=== PATIENT | female | born 1970 | race Hispanic/Latino ===

== ENCOUNTER 2017-12-01 18:33 | Emergency (ER) | payer BC, OTHER ==
[~2017-12-01 18:33] MED LIST: ASPI-1197 PO; ATOR10 PO; AZIT500T4 PO; LISI10TA7 PO; MELO-108 PO; METF500T6 PO; METO-408 PO; PRED20TA3 PO
[2017-12-01 18:55] LABS: APPEARANCE,URINE Clear (CLEAR); BILIRUBIN,URINE Negative (NEGATIVE); COLOR,URINE Yellow (YELLOW); GLUCOSE, URINE (UA) >=1000 mg/dL (NEGATIVE); KETONES,URINE Negative (NEGATIVE); LEUKOCYTE ESTERASE ,URINE Trace (NEGATIVE); NITRATE,URINE Negative (NEGATIVE); OCCULT BLOOD,URINE Small (NEGATIVE); PH,URINE 6.5 (5.0-8.0); PROTEIN,URINE POS 1+ (NEGATIVE); UROBILINOGEN,URINE 0.2 mg/dL (0.2-1.0)
[2017-12-01 19:15] LABS: BACTERIA,URINE Rare /HPF (None Seen); SQUAMOUS EPITHELIAL CELL,UR 0-2 /LPF (0-2)
[2017-12-01 19:37] LABS: BASOPHILS % (AUTO) 0.8 % (0.0-5.0); EOSINOPHILS % (AUTO) 1.2 % (0.0-8.0); HEMATOCRIT 38.3 % (36-48); MEAN CORPUSCULAR HGB CONC 33.3 g/dL (32.0-36.0); MONOCYTES % (AUTO) 4.7 % (3.0-13.0); NEUTROPHILS % (AUTO) 61.3 % (40.0-77.0); PLATELET COUNT (AUTO) 343 K/uL (130-400); RED BLOOD CELL COUNT(AUTO) 4.56 MIL/uL (4.00-5.50); RED CELL DISTRIBUTION WIDTH 13.7 % (11.0-15.5); WHITE BLOOD COUNT (AUTO) 12.1 K/uL (4.8-10.8)
[2017-12-01] MEDS ORDERED: LISINOPRIL 5 MG TABLET ONE (19:47)
[2017-12-01] MEDS ORDERED: ONDANSETRON HCL 4 MG/2 ML VIAL ONE (19:47)
[2017-12-01] MEDS ORDERED: SODIUM CHLORIDE 0.9% 500ML 500 ML IV ONE (19:48)
[2017-12-01] MEDS ORDERED: METOPROLOL TARTRATE 50 MG TAB ONE (19:48)
[2017-12-01] MEDS ORDERED: MORPHINE SULFATE 4 MG/1ML SYG ONE (19:48)
[2017-12-01 19:49] LABS: CREATININE 0.7 mg/dL (0.5-1.5); POTASSIUM 4.1 mmol/L (3.5-5.1)
[2017-12-01 19:54] LABS: ALBUMIN 3.2 g/dL (3.5-5.0); BILIRUBIN,TOTAL 0.2 mg/dL (0.2-1.0)
[2017-12-01 19:58] LABS: CREATINE KINASE MB < 0.5 ng/mL (0.5-3.6); CREATINE KINASE, TOTAL 33 U/L (21-232); MYOGLOBIN 17 ng/mL (10-92); TROPONIN I < 0.04 ng/mL (0.00-0.06)
[2017-12-01] MEDS ORDERED: INSULIN HUMULIN R 100 UNIT/ML 3ML ONE (20:36)
== END 2017-12-01 22:31 | disposition home or self-care (01) ==
LOC: EDH 18:33
DX: Z91.11 Patient's noncompliance with dietary regimen (principal); Z91.19 Patient's noncompliance with other medical treatment and regimen; R10.9 Unspecified abdominal pain; I10 Essential (primary) hypertension; E11.9 Type 2 diabetes mellitus without complications; I25.10 Atherosclerotic heart disease of native coronary artery without angina pectoris; Z88.0 Allergy status to penicillin
CPT/HCPCS: 36415; 74176; 80053; 81001; 82550; 82553; 82948; 83874; 84484; 85025; 93005; 96361; 96374; 96375; 99285; J1815; J2270; J2405; J7040

== ENCOUNTER 2019-01-02 08:16 | Emergency (ER) | payer SELFPAY ==
[~2019-01-02 08:16] MED LIST changes: +METF-444 PO; -METF500T6 PO
[2019-01-02 08:51] LABS: BILIRUBIN,URINE Negative (NEGATIVE); COLOR,URINE Yellow (YELLOW); GLUCOSE, URINE (UA) Negative (NEGATIVE); KETONES,URINE Negative (NEGATIVE); LEUKOCYTE ESTERASE ,URINE Trace (NEGATIVE); NITRATE,URINE Negative (NEGATIVE); OCCULT BLOOD,URINE Large (NEGATIVE); PH,URINE 5.5 (5.0-8.0); PROTEIN,URINE Trace (NEGATIVE)
[2019-01-02 08:52] LABS: APPEARANCE,URINE CLOUDY (CLEAR)
[2019-01-02 09:00] LABS: BACTERIA,URINE Few /HPF (None Seen); MUCUS,URINE Few LPF (None Seen); RBC,URINE 26-50 /HPF (0-1); SQUAMOUS EPITHELIAL CELL,UR Few /HPF (0-2)
[2019-01-02] MEDS ORDERED: ONDANSETRON ODT 4 MG TAB ONE (09:06)
[2019-01-02] MEDS ORDERED: ASPIRIN 325 MG TABLET ONE (09:06)
[2019-01-02] MEDS ORDERED: DIAZEPAM 5 MG TABLET ONE (09:07)
[2019-01-02 09:42] LABS: BASOPHILS % (AUTO) 0.7 % (0.0-5.0); EOSINOPHILS % (AUTO) 0.9 % (0.0-8.0); HEMATOCRIT 37.8 % (36-48); LYMPHOCYTES % (AUTO) 21.4 % (21.0-51.0); MEAN CORPUSCULAR HEMOGLOBIN 26.7 pg (27.0-33.0); MEAN CORPUSCULAR HGB CONC 32.2 g/dL (32.0-36.0); MEAN CORPUSCULAR VOLUME 82.8 fL (79-99); PLATELET COUNT (AUTO) 381 K/uL (130-400); RED BLOOD CELL COUNT(AUTO) 4.57 MIL/uL (4.00-5.50); RED CELL DISTRIBUTION WIDTH 16.1 % (11.0-15.5); WHITE BLOOD COUNT (AUTO) 10.6 K/uL (4.8-10.8)
[2019-01-02 09:53] LABS: ALANINE AMINOTRANSFERASE 19 U/L (12-78); ALBUMIN 3.2 g/dL (3.5-5.0); ASPARTATE AMINOTRANSFERASE 24 U/L (10-37); BILIRUBIN,DIRECT < 0.1 mg/dL (0.0-0.3); BILIRUBIN,TOTAL 0.3 mg/dL (0.2-1.0); CARBON DIOXIDE 25 mmol/L (21-32); CHLORIDE 102 mmol/L (101-111); CREATINE KINASE, TOTAL 51 U/L (21-232); CREATININE 0.6 mg/dL (0.5-1.5); GLOMERULAR FILTR. RATE CALC 112 mL/min (>60); GLUCOSE,RANDOM 159 mg/dL (70-105); LIPASE 105 U/L (114-286); POTASSIUM 4.5 mmol/L (3.5-5.1); SODIUM SERUM 138 mmol/L (136-145); TOTAL PROTEIN, SERUM 7.9 g/dL (6.0-8.3); UREA NITROGEN, BLOOD 18 mg/dL (7-18)
[2019-01-02] MEDS ORDERED: KETOROLAC TROMETHAMINE 30MG/ML ONE (11:33)
== END 2019-01-02 11:56 | disposition home or self-care (01) ==
LOC: EDH 08:16
DX: M54.5 Low back pain (principal); R31.9 Hematuria, unspecified; I25.10 Atherosclerotic heart disease of native coronary artery without angina pectoris; I10 Essential (primary) hypertension; E11.9 Type 2 diabetes mellitus without complications; Z88.0 Allergy status to penicillin; Z98.890 Other specified postprocedural states
CPT/HCPCS: 36415; 71045; 74176; 80048; 80076; 81001; 82550; 83690; 83880; 84484; 85025; 93005; 96374; 99284; J1885

== ENCOUNTER 2020-01-06 05:44 | Day surgery (SDC) | payer MEDICAID ==
[2020-01-04 08:47] LABS: BASOPHILS % (AUTO) 0.5 % (0.0-5.0); EOSINOPHILS % (AUTO) 1.1 % (0.0-8.0); HEMATOCRIT 37.2 % (36-48); LYMPHOCYTES % (AUTO) 25.8 % (21.0-51.0); MEAN CORPUSCULAR HEMOGLOBIN 26.3 pg (27.0-33.0); MEAN CORPUSCULAR HGB CONC 30.9 g/dL (32.0-36.0); MEAN CORPUSCULAR VOLUME 84.9 fL (79-99); MONOCYTES % (AUTO) 4.6 % (3.0-13.0); NEUTROPHILS % (AUTO) 67.7 % (40.0-77.0); PLATELET COUNT (AUTO) 352 K/uL (130-400); RED BLOOD CELL COUNT(AUTO) 4.38 MIL/uL (4.00-5.50); WHITE BLOOD COUNT (AUTO) 10.4 K/uL (4.8-10.8)
[2020-01-04 08:49] LABS: APPEARANCE,URINE Clear (CLEAR); BILIRUBIN,URINE Negative (NEGATIVE); COLOR,URINE Yellow (YELLOW); GLUCOSE, URINE (UA) Negative (NEGATIVE); KETONES,URINE Negative (NEGATIVE); LEUKOCYTE ESTERASE ,URINE Negative (NEGATIVE); NITRATE,URINE Negative (NEGATIVE); OCCULT BLOOD,URINE Negative (NEGATIVE); PROTEIN,URINE Negative (NEGATIVE); UROBILINOGEN,URINE 0.2 mg/dL (0.2-1.0)
[2020-01-04 08:50] LABS: CREATININE 0.7 mg/dL (0.5-1.5); POTASSIUM 4.3 mmol/L (3.5-5.1)
[2020-01-04 08:58] LABS: INR 0.96 (0.85-1.15); PARTIAL THROMBOPLASTIN TIME 27.7 SEC (26.3-35.5); PROTHROMBIN TIME 10.1 SEC (9.6-11.6)
[2020-01-04 09:44] VITALS: BP 141/68
[~2020-01-06] VITALS: Ht 167.6 cm; Wt 161.4 kg
[2020-01-06] VITALS (10 sets, daily range): BP systolic 120–152; BP diastolic 53–75
[~2020-01-06 05:44] MED LIST changes: -AZIT500T4 PO; +EMPA25TA PO; +ESCI20TA36 PO; +GLIM4TAB36 PO; +LORA10TA7 PO; -MELO-108 PO; +PANT40TA25 PO; -PRED20TA3 PO; +RIVA20TA PO
[2020-01-06] MEDS ORDERED: SODIUM CHLORIDE 0.9% 1000ML 1,000 ML IV ONE (06:15)
--- NOTE | 2020-01-06 06:15 | NUR ---
PRE OP PT ARRIVED AMBULATORY WITH FAMILY AT SIDE IN NO DISTRESS FOR LHC. PT MADE COMFORTABLE IN BED, CONNECTED TO [employer], CALL LIGHT WITH IN REACH AND BED IN LOWEST POSITION. PT INSTRUCTED TO CALL FOR ASSISTANCE AND VOICED UNDERSTANDING
[2020-01-06] MEDS ORDERED: SODIUM BICARB 50MEQ 50ML VIAL ONE (07:43)
[2020-01-06] MEDS ORDERED: BIVALIRUDIN 250 MG/VIAL IV ONE (07:43)
[2020-01-06] MEDS ORDERED: LIDOCAINE HCL 2% 20ML ONE (07:44)
[2020-01-06] MEDS ORDERED: IOHEXOL 350 MG/ML 100ML INFUS..BTL IV ONE (07:44)
[2020-01-06] MEDS ORDERED: HEPARIN SODIUM 1000UNIT/ML 10ML VIAL ONE ×2 (07:44→08:43)
[2020-01-06] MEDS ORDERED: FENTANYL CITRATE PF 50 MCG/1 ML 2ML VIAL ONE (07:44)
[2020-01-06] MEDS ORDERED: IOHEXOL-350 50ML VIAL IV ONE (07:44)
[2020-01-06] MEDS ORDERED: MIDAZOLAM HCL 1 MG/ML 2ML VIAL ONE (07:44)
[2020-01-06] MEDS ORDERED: NICARDIPINE HCL 25 MG/10 ML ML IV ONE (07:49)
[2020-01-06] MEDS ORDERED: SODIUM CHLORIDE 0.9% 1000ML 1,000 ML IV SCH (08:00)
[2020-01-06] MEDS ORDERED: METOPROLOL TARTRATE 1 MG/ML 5ML VIAL IV ONE (08:34)
[2020-01-06] MEDS ORDERED: PRASUGREL HCL 10 MG TABLET ONE (09:25)
[2020-01-06] MEDS ORDERED: ASPIRIN 325MG EC TAB 325 MG TABLET.DR PO ONE (09:25)
--- NOTE | 2020-01-06 10:20 | NUR ---
ROUNDS DR NEWTON TALKING TO PT AND FAMILY. PLAN OF CARE DISCUSSED WITH PT. PT WILL NEED TO BE ON BLOOD THINNERS FOR A WHILE SO GASTRIC SURGERY WILL BE DELAYED WITH DR BOOKER. PT ALSO INSTRUCTED TO FOLLOW UP WITH DR NEWTON. PT VOICED UNDERSTANDING.
--- NOTE | 2020-01-06 13:33 | NUR ---
REPORT CALLED SAYRA MELTON WITH DR NEWTON AND REPORTED C/O HEADACHE RECEIVED NEW ORDER FOR TYLENOL. SEE ORDERS
[2020-01-06] MEDS ORDERED: ACETAMINOPHEN EXTRA STRENGTH 500 MG TABLET ONE (13:42)
[2020-01-06] MEDS ORDERED: ACETAMINOPHEN EXTRA STRENGTH 500 MG TABLET PO SCH (13:45)
--- NOTE | 2020-01-06 14:40 | NUR ---
DISCHARGE PT TAKEN OUT VIA W/C BY IGOR JONES RN. PT FREE FROM BLEEDING AND DISTRESS. PT WAS GIVEN STENT CARD AND DISCHARGE INSTRUCTIONS
== END 2020-01-06 14:40 | disposition home or self-care (01) ==
LOC: DAH 05:44
PROVIDERS: ATTEND Internal Medicine Cardiovascular Disease
DX: R00.2 Palpitations (principal); I25.10 Atherosclerotic heart disease of native coronary artery without angina pectoris; I48.0 Paroxysmal atrial fibrillation; E78.5 Hyperlipidemia, unspecified; E11.9 Type 2 diabetes mellitus without complications; E78.00 Pure hypercholesterolemia, unspecified; G47.30 Sleep apnea, unspecified; I10 Essential (primary) hypertension; Z79.82 Long term (current) use of aspirin; Z79.84 Long term (current) use of oral hypoglycemic drugs; Z79.899 Other long term (current) drug therapy; Z86.73 Personal history of transient ischemic attack (TIA), and cerebral infarction without residual deficits; Z79.01 Long term (current) use of anticoagulants; Z90.49 Acquired absence of other specified parts of digestive tract; Z95.5 Presence of coronary angioplasty implant and graft; Z98.890 Other specified postprocedural states; Z88.0 Allergy status to penicillin
CPT/HCPCS: 36415 ×3; 71045 ×2; 80048; 80053; 81001; 81003; 81025; 82550; 82948 ×2; 83735; 83880; 84484; 85025 ×2; 85347; 85610 ×2; 85730 ×2; 93005 ×2; 93458; 99291; A4215; A4216; A4221; A4222; A4223 ×3; A4606; A4663; C1725 ×3; C1769; C1874; C1887; C1894; C9600; G0378 ×7; J1644 ×4; J1650 ×2; J2250; J3010; J3490 ×6; J7030 ×3; J7060; Q9965; Q9967 ×2; 83874; 99156; 99157; C9602; J0583

== ENCOUNTER 2020-01-06 17:46 | Observation (INO) | payer MEDICAID ==
[~2020-01-06] VITALS: Ht 167.6 cm; Wt 158.8 kg
[2020-01-06] MEDS ORDERED: DILTIAZEM HCL 5 MG/ML 10 ML VIAL IV ONE (18:06)
[2020-01-06] MEDS ORDERED: DILTIAZEM HCL 125 MG/25 ML VIAL IV ONE (18:07)
[2020-01-06] MEDS ORDERED: DEXTROSE 5%-WATER 100 ML IV ONE (18:08)
[2020-01-06] MEDS ORDERED: ASPIRIN 325 MG TABLET ONE (18:14)
[2020-01-06 18:16] LABS: BASOPHILS % (AUTO) 0.3 % (0.0-5.0); HEMATOCRIT 38.2 % (36-48); LYMPHOCYTES % (AUTO) 24.9 % (21.0-51.0); MEAN CORPUSCULAR HEMOGLOBIN 26.3 pg (27.0-33.0); MEAN CORPUSCULAR HGB CONC 31.4 g/dL (32.0-36.0); MEAN CORPUSCULAR VOLUME 83.6 fL (79-99); MONOCYTES % (AUTO) 4.8 % (3.0-13.0); NEUTROPHILS % (AUTO) 68.7 % (40.0-77.0); PLATELET COUNT (AUTO) 390 K/uL (130-400); RED BLOOD CELL COUNT(AUTO) 4.57 MIL/uL (4.00-5.50); RED CELL DISTRIBUTION WIDTH 15.3 % (11.0-15.5); WHITE BLOOD COUNT (AUTO) 11.6 K/uL (4.8-10.8)
[2020-01-06] MEDS ORDERED: ENOXAPARIN SODIUM 60 MG/0.6 ML SQ ONE (18:28)
[2020-01-06] MEDS ORDERED: SODIUM CHLORIDE 0.9% 1000ML 1,000 ML IV ONE ×2 (18:28→19:17)
[2020-01-06] MEDS ORDERED: ENOXAPARIN SODIUM 100 MG/1 ML SQ ONE (18:28)
[2020-01-06 18:29] LABS: POTASSIUM 3.7 mmol/L (3.5-5.1)
[2020-01-06 18:31] LABS: INR 0.96 (0.85-1.15); PARTIAL THROMBOPLASTIN TIME 25.5 SEC (26.3-35.5); PROTHROMBIN TIME 10.1 SEC (9.6-11.6)
[2020-01-06 18:34] LABS: ALBUMIN 3.1 g/dL (3.5-5.0); BILIRUBIN,TOTAL 0.3 mg/dL (0.2-1.0); TOTAL PROTEIN, SERUM 7.8 g/dL (6.0-8.3)
[2020-01-06 18:41] LABS: B-TYPE NATRIURETIC PEPTIDE 113 pg/mL (0-100)
[2020-01-06 19:39] LABS: APPEARANCE,URINE Clear (CLEAR); BILIRUBIN,URINE Negative (NEGATIVE); COLOR,URINE Yellow (YELLOW); GLUCOSE, URINE (UA) >=1000 mg/dL (NEGATIVE); KETONES,URINE Negative (NEGATIVE); LEUKOCYTE ESTERASE ,URINE Negative (NEGATIVE); NITRATE,URINE Negative (NEGATIVE); OCCULT BLOOD,URINE Negative (NEGATIVE); PROTEIN,URINE Negative (NEGATIVE); UROBILINOGEN,URINE 0.2 mg/dL (0.2-1.0)
[2020-01-06] MEDS ORDERED: DILTIAZEM HCL 125 MG/25 ML 125 MG in SODIUM CHLORIDE 0.9% 100 ML IV SCH (19:45)
[2020-01-06 19:52] LABS: BACTERIA,URINE Rare /HPF (None Seen); RBC,URINE 0-1 /HPF (0-1); SQUAMOUS EPITHELIAL CELL,UR Rare /HPF (0-2); WBC,URINE 0-1 /HPF (0-1)
[2020-01-07 01:48] LABS: TROPONIN I 0.48 ng/mL (0.00-0.06)
[2020-01-07 07:34] LABS: TROPONIN I 0.55 ng/mL (0.00-0.06)
--- NOTE | 2020-01-07 09:19 | NUR ---
DCP: HOME SW met with pt who lives with her [phone]. Pt states she is independent of all ADLS, works, drives, no DME or in home care services. PCP is Dr Barragan, and she uses [facility]. Pt denies dc needs, plan is home at dc Addendum: 01/07/20 at 0923 by LORI WATKINS Amended: Links added.
[2020-01-07] MEDS ORDERED: METOPROLOL TARTRATE 50 MG TAB ONE (09:32)
[2020-01-07] MEDS ORDERED: ASPIRIN 81MG TAB.CHEW ONE (09:32)
[2020-01-07] MEDS ORDERED: METFORMIN HCL 500 MG TABLET ONE (09:33)
[2020-01-07] MEDS ORDERED: PANTOPRAZOLE SODIUM 40 MG TABLET.DR ONE (09:33)
[2020-01-07] MEDS ORDERED: LORATADINE 10 MG TABLET PO SCH (10:00)
[2020-01-07] MEDS ORDERED: DRONEDARONE HYDROCHLORIDE 400 MG TABLET PO SCH ×2 (10:00→21:00)
[2020-01-07] MEDS ORDERED: PRASUGREL HCL 10 MG TABLET PO SCH (10:00)
[2020-01-07] MEDS ORDERED: GLIMEPIRIDE 2 MG TABLET PO SCH (10:00)
[2020-01-07] MEDS ORDERED: RIVAROXABAN 20 MG TABLET PO SCH (10:00)
[2020-01-07] MEDS ORDERED: LINAGLIPTIN 5 MG TABLET PO SCH (10:00)
[2020-01-07] MEDS ORDERED: CLOPIDOGREL BISULFATE 75 MG TAB ONE (18:54)
[2020-01-08] MEDS ORDERED: RIVAROXABAN 20 MG TABLET PO SCH (09:00)
[2020-01-08] MEDS ORDERED: PRASUGREL HCL 10 MG TABLET PO SCH (09:00)
== END 2020-01-07 19:03 | disposition home or self-care (01) ==
LOC: EDH 17:46 → EDHIP 17:47
PROVIDERS: ADMIT Internal Medicine; ATTEND Internal Medicine
DX: I48.0 Paroxysmal atrial fibrillation (principal); I25.10 Atherosclerotic heart disease of native coronary artery without angina pectoris; E11.9 Type 2 diabetes mellitus without complications; I10 Essential (primary) hypertension; E66.9 Obesity, unspecified; J45.909 Unspecified asthma, uncomplicated; Z86.73 Personal history of transient ischemic attack (TIA), and cerebral infarction without residual deficits; Z95.5 Presence of coronary angioplasty implant and graft; Z79.01 Long term (current) use of anticoagulants; Z79.84 Long term (current) use of oral hypoglycemic drugs; Z79.82 Long term (current) use of aspirin; Z79.899 Other long term (current) drug therapy; Z88.0 Allergy status to penicillin; Z68.43 Body mass index [BMI] 50.0-59.9, adult
CPT/HCPCS: 36415 ×2; 71045; 80053; 81001; 81025; 82550 ×3; 83735; 83874 ×2; 83880; 84484 ×3; 85025; 85610; 85730; 93005 ×2; 99291; G0378 ×24; J1650 ×2; J3490 ×2; J7030 ×2; J7060

== ENCOUNTER 2020-04-18 06:46 | Inpatient (IN) | payer MEDICAID ==
[2020-04-14 12:29] LABS: BASOPHILS % (AUTO) 0.4 % (0.0-5.0); EOSINOPHILS % (AUTO) 0.9 % (0.0-8.0); LYMPHOCYTES % (AUTO) 28.9 % (21.0-51.0); MEAN CORPUSCULAR HEMOGLOBIN 24.2 pg (27.0-33.0); MEAN CORPUSCULAR HGB CONC 28.2 g/dL (32.0-36.0); MEAN CORPUSCULAR VOLUME 85.7 fL (79-99); MONOCYTES % (AUTO) 4.3 % (3.0-13.0); NEUTROPHILS % (AUTO) 65.1 % (40.0-77.0); NUCLEATED RED BLOOD CELLS 0.3 % (0.0-0.19); PLATELET COUNT (AUTO) 413 K/uL (130-400); RED BLOOD CELL COUNT(AUTO) 3.85 MIL/uL (4.00-5.50); RED CELL DISTRIBUTION WIDTH 20.2 % (11.0-15.5); WHITE BLOOD COUNT (AUTO) 9.1 K/uL (4.8-10.8)
[2020-04-14 13:52] LABS: INR 0.97 (0.85-1.15); PARTIAL THROMBOPLASTIN TIME 28.2 SEC (26.3-35.5); PROTHROMBIN TIME 10.5 SEC (9.6-11.6)
[2020-04-14 13:53] LABS: CREATININE 0.8 mg/dL (0.5-1.5); POTASSIUM 3.9 mmol/L (3.5-5.1)
[2020-04-14 17:26] VITALS: BP 137/75
--- NOTE | 2020-04-17 10:04 | NUR ---
RE: PLAVIX PATIENT STATES THAT SHE NEVER STOPPED TAKING HER PLAVIX, SHE WAS NEVER INFORMED TO STOP TAKING HER PLAVIX. CALLED DR BAIN'S OFFICE AND SPOKE WITH VIDAL. PER VIDAL, SURGERY WILL BE CANCELED AND SHE WILL INFORM DR BAIN AND HERNESTO FROM SCHEDULING. Addendum: 04/17/20 at 1014 by FARIBA MERRITT RN RN PER VIDAL, SHE INFORMED DR BAIN REGARDING PATIENT TAKING PLAVIX AND DR BAIN STILL WANTS TO DO THE SURGERY. PROCEED WITH SCHEDULED SURGERY PER DR BAIN.
--- NOTE | 2020-04-17 10:51 | NUR ---
RE: LABS CALLED DR BAIN'S OFFICE AND SPOKE WITH VIDAL REGARDING HGB 9.3/ HCT 33.0, PLT 413. PER VIDAL, SHE WILL CALL BACK IF NEW ORDERS ARE GIVEN.
[~2020-04-18] VITALS: Ht 166.4 cm; Wt 160.3 kg
[2020-04-18] VITALS (20 sets, daily range): BP systolic 107–135; BP diastolic 51–97
[~2020-04-18 06:46] MED LIST changes: -ASPI-1197 PO; -ATOR10 PO; +ATOR40TA69 PO; +CLOP75TA32 PO; +DRON400T2 PO; -LISI10TA7 PO; -PANT40TA25 PO; +PANT40TA54 PO; -RIVA20TA PO
[2020-04-18] MEDS ORDERED: CALDOLOR 800MG+NS 250ML 250 ML IV ONE ×2 (07:11→07:13)
[2020-04-18] MEDS ORDERED: CALDOLOR 800MG+NS 250ML 250 ML IV PRN (07:22)
[2020-04-18] MEDS ORDERED: SODIUM CHLORIDE 0.9% 1000ML 1,000 ML IV ONE (07:30)
--- NOTE | 2020-04-18 07:30 | NUR ---
PREOP PT ARRIVED VIA W/C IN NO DISTRESS. PT ORIENTED TO ROOM AND CALL LIGHT. PT VOICED UNDERSTANDING. WILL CONTINUE TO MONITOR PT.
[2020-04-18] MEDS ORDERED: LACTATED RINGERS 1000ML 1,000 ML IV SCH (08:00)
[2020-04-18] MEDS: CLINDAMYCIN 600MG IN 0.9% SOD 50 ML IV PRN ×2 (08:26→14:30)
[2020-04-18 08:27] LABS: HEMATOCRIT 30.5 % (36-48)
[2020-04-18] MEDS ORDERED: MEDR10TA PO (08:38)
[2020-04-18 08:42] LABS: INR 0.98 (0.85-1.15); PARTIAL THROMBOPLASTIN TIME 21.7 SEC (26.3-35.5); PROTHROMBIN TIME 10.6 SEC (9.6-11.6)
--- NOTE | 2020-04-18 08:48 | NUR ---
REPORT DR BAIN SAW H/H AND PT/ INR. NO NEW ORDERS
[2020-04-18] MEDS ORDERED: SUCCINYLCHOLINE 200MG/10ML SYR ONE (10:48)
[2020-04-18] MEDS ORDERED: PROPOFOL 10 MG/ML 20ML VIAL IV ONE (10:48)
[2020-04-18] MEDS ORDERED: LIDOCAINE PF 2% 5ML ABBOJECT ONE (10:48)
[2020-04-18] MEDS ORDERED: ROCURONIUM 10MG/1ML SYR 10 MG/ML ML ONE (10:49)
[2020-04-18] MEDS ORDERED: FENTANYL CITRATE PF 50 MCG/1 ML 2ML VIAL ONE ×2 (10:49→15:47)
[2020-04-18] MEDS ORDERED: LEVOFLOXACIN 500 MG/D5W 100 ML 100 ML ONE (10:51)
[2020-04-18] MEDS ORDERED: MIDAZOLAM HCL 1 MG/ML 2ML VIAL ONE (13:24)
[2020-04-18] MEDS ORDERED: EPHEDRINE SULFATE 50 MG/ML AMPULE ONE (13:43)
[2020-04-18] MEDS ORDERED: MEPERIDINE-PF 25 MG/ML SYG ONE ×3 (15:01→16:39)
[2020-04-18] MEDS ORDERED: PHENYLEPHRINE HCL 10 MG/ML 1ML VIAL IV ONE (15:36)
[2020-04-18] MEDS ORDERED: SODIUM CHLORIDE 0.9% 10 ML VIAL ONE (15:36)
[2020-04-18] MEDS ORDERED: ONDANSETRON HCL 4 MG/2 ML VIAL ONE (15:45)
[2020-04-18] MEDS ORDERED: GLYCOPYRROLATE 1 MG/5 ML SYRINGE ONE (15:45)
[2020-04-18] MEDS ORDERED: NEOSTIGMINE 5MG/5ML SYR IV ONE (15:45)
[2020-04-18] MEDS: SODIUM CHLORIDE 0.9% 1000ML 1,000 ML IV SCH (16:09)
[2020-04-18] MEDS ORDERED: MEPERIDINE-PF 75 MG/ML SYG IM PRN (16:15)
[2020-04-18] MEDS ORDERED: DOCUSATE SODIUM 100 MG CAP PO PRN (16:15)
[2020-04-18] MEDS ORDERED: SIMETHICONE 80 MG TAB.CHEW PO PRN (16:15)
[2020-04-18] MEDS ORDERED: ACETAMINOPHEN-CODEINE 300/30MG TAB PO PRN (16:15)
[2020-04-18] MEDS ORDERED: BISACODYL 10 MG SUPP.RECT RC PRN (16:15)
[2020-04-18] MEDS ORDERED: PROMETHAZINE HCL 25 MG/ML 1ML AMPULE IM PRN ×2 (16:15)
[2020-04-18] MEDS ORDERED: MEPERIDINE-PF 25 MG/ML SYG IM PRN ×2 (17:00→19:30)
--- NOTE | 2020-04-18 17:30 | NUR ---
PATIENT ARRIVED TO UNIT VIA BED. LEIF DRESSING ASSESSED WITH AGATHA RN AT BEDSIDE. SALEH CATHETER DRAINING TO BEDSIDE. NO C/O PAIN VOICED FROM PATIENT. CALL LIGHT LEFT IN REACH. ADVISED PATIENT TO CALL WITH ANY NEEDS OR CONCERNS.
--- NOTE | 2020-04-18 17:35 | NUR ---
LINH VIDAL NOTIFIED THAT PATIENT IS IN ROOM. PA TO ROUND THIS EVENING.
--- NOTE | 2020-04-18 18:00 | NUR ---
LINH VIDAL ROUNDING ON PATIENT AT THIS TIME. NEW ORDERS RECEIVED. PA WAS ABLE TO SPEAK TO DR. BAIN VIA TELEPHONE.
[2020-04-18] MEDS ORDERED: MEPERIDINE-PF 50 MG/ML SYG IM PRN (19:30)
[2020-04-18] MEDS: INSULIN HUMULIN R 100 UNIT/ML 3ML SQ SCH (21:00)
[2020-04-18] MEDS: DRONEDARONE HYDROCHLORIDE 400 MG TABLET PO SCH (21:23)
[2020-04-18] MEDS: ATORVASTATIN CALCIUM 40 MG TABLET PO SCH (21:23)
[2020-04-19] VITALS (7 sets, daily range): BP systolic 97–135; BP diastolic 54–77
[2020-04-19] MEDS: SODIUM CHLORIDE 0.9% 1000ML 1,000 ML IV SCH ×2 (00:09→04:49)
[2020-04-19] MEDS: CALDOLOR 800MG+NS 250ML 250 ML IV SCH ×2 (00:12→08:39)
--- NOTE | 2020-04-19 06:30 | NUR ---
THERESE BASS DC'Regino, PT INST. TO CALL FOR ASSIST BEFORE GETTING OOB, VERBALIZED UNDERSTANDING. PT. DANGLED AND SAT AT BEDSIDE BY KAROLYN COSME. WELL TOLERATED. Addendum: 04/19/20 at 0700 by RAMON ROJAS RN RN Amended: Links added.
[2020-04-19 06:53] LABS: HEMATOCRIT 26.7 % (36-48); MEAN CORPUSCULAR HEMOGLOBIN 24.2 pg (27.0-33.0); MEAN CORPUSCULAR HGB CONC 28.5 g/dL (32.0-36.0); NUCLEATED RED BLOOD CELLS 0.2 % (0.0-0.19); RED BLOOD CELL COUNT(AUTO) 3.14 MIL/uL (4.00-5.50); RED CELL DISTRIBUTION WIDTH 19.8 % (11.0-15.5); WHITE BLOOD COUNT (AUTO) 10.5 K/uL (4.8-10.8)
[2020-04-19] MEDS: INSULIN HUMULIN R 100 UNIT/ML 3ML SQ SCH ×3 (07:30→21:00)
--- NOTE | 2020-04-19 08:25 | NUR ---
LINH RICHARDSON AT BEDSIDE TO ASSESS AND TALK TO PT. POC DISCUSSED WITH PT TO HOLD METOPROLOL FOR TODAY, BUT CONTINUE WITH MULTAQ. PT VERBALIZED UNDERSTANDING.
[2020-04-19] MEDS: DRONEDARONE HYDROCHLORIDE 400 MG TABLET PO SCH ×2 (08:58→21:36)
[2020-04-19] MEDS ORDERED: METOPROLOL SUCCINATE 50 MG TAB.SR.24H PO SCH (09:00)
[2020-04-19] MEDS ORDERED: SODIUM CHLORIDE 0.9% 10 ML VIAL IVP PRN (11:45)
[2020-04-19] MEDS ORDERED: IBUPROFEN 800 MG TAB PO SCH ×2 (11:45→16:15)
[2020-04-19] MEDS ORDERED: ACETAMINOPHEN-CODEINE 300/30MG TAB PO PRN (11:45)
[2020-04-19] MEDS ORDERED: BISACODYL 10 MG SUPP.RECT RC PRN (11:45)
[2020-04-19] MEDS ORDERED: HYDROCODONE/ACETAMINOPHEN 5/325 MG TAB PO PRN (11:45)
[2020-04-19] MEDS: SIMETHICONE 80 MG TAB.CHEW PO PRN ×2 (13:51→20:32)
[2020-04-19] MEDS: IBUPROFEN 800 MG TAB PO SCH ×2 (13:52→20:33)
[2020-04-19] MEDS: DOCUSATE SODIUM 100 MG CAP PO PRN (20:31)
[2020-04-19] MEDS: ATORVASTATIN CALCIUM 40 MG TABLET PO SCH (21:36)
--- NOTE | 2020-04-19 22:30 | NUR ---
COMFORT PT WAS GIVEN DULCOLAX SUPPOSITORY, HAD GOOD RESULTS Addendum: 04/20/20 at 0328 by DEVON YUSUF LVN Amended: Links added.
[2020-04-20] MEDS: IBUPROFEN 800 MG TAB PO SCH ×2 (02:26→09:32)
[2020-04-20 03:56] VITALS: BP 107/69
[2020-04-20 06:49] LABS: BASOPHILS % (AUTO) 0.5 % (0.0-5.0); HEMATOCRIT 27.4 % (36-48); LYMPHOCYTES % (AUTO) 20.4 % (21.0-51.0); MEAN CORPUSCULAR HEMOGLOBIN 24.6 pg (27.0-33.0); MEAN CORPUSCULAR HGB CONC 28.5 g/dL (32.0-36.0); MEAN CORPUSCULAR VOLUME 86.4 fL (79-99); MONOCYTES % (AUTO) 5.7 % (3.0-13.0); NEUTROPHILS % (AUTO) 71.3 % (40.0-77.0); PLATELET COUNT (AUTO) 366 K/uL (130-400); RED BLOOD CELL COUNT(AUTO) 3.17 MIL/uL (4.00-5.50); RED CELL DISTRIBUTION WIDTH 19.7 % (11.0-15.5)
[2020-04-20] MEDS: INSULIN HUMULIN R 100 UNIT/ML 3ML SQ SCH ×2 (07:30→11:30)
[2020-04-20 07:54] VITALS: BP 96/47
[2020-04-20] MEDS ORDERED: CLOPIDOGREL BISULFATE 300 MG TAB PO SCH (08:45)
[2020-04-20] MEDS: SIMETHICONE 80 MG TAB.CHEW PO PRN (09:32)
[2020-04-20] MEDS: DRONEDARONE HYDROCHLORIDE 400 MG TABLET PO SCH (09:32)
[2020-04-20] MEDS: DOCUSATE SODIUM 100 MG CAP PO PRN (09:32)
[2020-04-20 11:14] VITALS: BP 146/64
[2020-04-20] MEDS ORDERED: ACET1TAB25 PO (12:51)
[2020-04-20] MEDS ORDERED: IBUP-2077 PO (12:51)
[2020-04-20] MEDS ORDERED: DOCU240C80 PO (12:52)
[2020-04-20] MEDS ORDERED: APIX5TAB PO (12:53)
--- NOTE | 2020-04-20 13:20 | NUR ---
verbal and written discharge instructions given, emphasized on incision care, informed of the follow up appointment, prescription given. informed to discontinue xarelto, aspirin,metoprolol, and lisinopril until her follow up visit with Dr. Sullivan. informed to call the doctor for future concerns. pt voiced understanding to all things discussed. Addendum: 04/20/20 at 1358 by RIKKI PIKE RN Amended: Links added.
--- NOTE | 2020-04-20 13:37 | NUR ---
pt is dismissed in stable condition, brought to private car via wheelchair by Savannah Clark pcp Addendum: 04/20/20 at 1359 by RIKKI PIKE RN Amended: Links added.
== END 2020-04-20 13:37 | disposition home or self-care (01) | DRG 513 ==
LOC: DAHIP 06:46 → EDSTATUS 10:40 → WSH 17:30
PROC: 0UB20ZZ Excision of Bilateral Ovaries, Open Approach (ICD-10-PCS; 2020-04-18)
PROC: 0UB70ZZ Excision of Bilateral Fallopian Tubes, Open Approach (ICD-10-PCS; 2020-04-18)
PROC: 0UT90ZL Resection of Uterus, Supracervical, Open Approach (ICD-10-PCS; principal; 2020-04-18 13:25)
DX: N92.0 Excessive and frequent menstruation with regular cycle (principal); D64.9 Anemia, unspecified; E78.5 Hyperlipidemia, unspecified; I10 Essential (primary) hypertension; E11.9 Type 2 diabetes mellitus without complications; I25.10 Atherosclerotic heart disease of native coronary artery without angina pectoris; I48.0 Paroxysmal atrial fibrillation; Z79.01 Long term (current) use of anticoagulants; Z95.5 Presence of coronary angioplasty implant and graft; Z98.891 History of uterine scar from previous surgery; Z88.0 Allergy status to penicillin
CPT/HCPCS: 36415; 80048; 82948; 84703; 85014; 85018; 85025; 85027; 85610; 85730; 86850; 86900; 86901; 88307; 93005; A4344; G0378; J0330; J1741; J1956; J2001; J2175; J2250; J2370; J2405; J2550; J2704; J2710; J3010; J3490; J7030; U0003

== ENCOUNTER → 2020-08-07 | Outpatient (CLI) | payer MEDICAID ==
[~2020-08-07] MED LIST changes: +ACET1TAB25 PO; +APIX5TAB PO; -ATOR40TA69 PO; +DOCU240C80 PO; +IBUP-2077 PO; +MEDR10TA PO; -METO-408 PO
== END | disposition home or self-care (01) ==
LOC: OIH 09:05
PROVIDERS: ATTEND Internal Medicine
DX: Z01.818 Encounter for other preprocedural examination (principal)
CPT/HCPCS: 71046

== ENCOUNTER 2020-09-11 07:00 | Day surgery (SDC) | payer MEDICAID ==
[~2020-09-11] VITALS: Ht 165.1 cm; Wt 158.8 kg
[2020-09-11] VITALS (13 sets, daily range): BP systolic 92–120; BP diastolic 24–69
[~2020-09-11 07:00] MED LIST changes: -ACET1TAB25 PO; +ATOR20TA65 PO; -DOCU240C80 PO; -IBUP-2077 PO; +LISI40TA4 PO; -MEDR10TA PO
[2020-09-11] MEDS ORDERED: PROPOFOL 10 MG/ML 20ML VIAL IV ONE (08:04)
[2020-09-11] MEDS ORDERED: MIDAZOLAM HCL 1 MG/ML 2ML VIAL ONE (08:05)
[2020-09-11] MEDS ORDERED: LIDOCAINE HCL 1% 20 ML VIAL ONE (08:05)
[2020-09-11] MEDS ORDERED: SODIUM CHLORIDE 0.9% 1000ML 1,000 ML IV ONE (08:09)
[2020-09-11] MEDS ORDERED: METO-408 PO (08:27)
== END 2020-09-11 10:10 | disposition home or self-care (01) ==
LOC: DAH 07:00 → ENDO 07:00
PROVIDERS: ATTEND Surgery
DX: K21.9 Gastro-esophageal reflux disease without esophagitis (principal); Z20.828 Contact with and (suspected) exposure to other viral communicable diseases; K29.50 Unspecified chronic gastritis without bleeding; K31.89 Other diseases of stomach and duodenum; I10 Essential (primary) hypertension; I25.10 Atherosclerotic heart disease of native coronary artery without angina pectoris; E11.9 Type 2 diabetes mellitus without complications; I48.91 Unspecified atrial fibrillation; E66.01 Morbid (severe) obesity due to excess calories; Z95.5 Presence of coronary angioplasty implant and graft; Z98.890 Other specified postprocedural states; Z98.891 History of uterine scar from previous surgery; Z90.49 Acquired absence of other specified parts of digestive tract; Z86.73 Personal history of transient ischemic attack (TIA), and cerebral infarction without residual deficits; Z88.1 Allergy status to other antibiotic agents; Z79.899 Other long term (current) drug therapy; Z79.82 Long term (current) use of aspirin; Z79.84 Long term (current) use of oral hypoglycemic drugs; Z79.01 Long term (current) use of anticoagulants; Z83.3 Family history of diabetes mellitus; Z82.49 Family history of ischemic heart disease and other diseases of the circulatory system; Z68.44 Body mass index [BMI] 60.0-69.9, adult
CPT/HCPCS: 43239; 82948 ×3; A4215; A4221; A4222; A4223; A4606; A4620; A4657 ×3; A4663; C9803; J2250; J2704; J7030; U0003

== ENCOUNTER 2020-12-05 05:57 | Day surgery (SDC) | payer MEDICAID ==
[~2020-12-05] VITALS: Ht 165.1 cm; Wt 163.3 kg
[~2020-12-05 05:57] MED LIST changes: -ESCI20TA36 PO; +ESCI20TA54 PO; +METO-408 PO
[2020-12-05] MEDS ORDERED: SODIUM CHLORIDE 0.9% 1000ML 1,000 ML IV ONE (06:18)
[2020-12-05 07:02] VITALS: BP 95/56
[2020-12-05] MEDS ORDERED: PROPOFOL 10 MG/ML 20ML VIAL IV ONE ×2 (08:13)
[2020-12-05] MEDS ORDERED: EPHEDRINE SULFATE 50 MG/ML AMPULE ONE (08:25)
[2020-12-05 08:47] VITALS: BP 97/58
[2020-12-05 08:52] VITALS: BP 101/50
[2020-12-05 08:57] VITALS: BP 104/57
[2020-12-05 09:02] VITALS: BP 102/65
[2020-12-05 09:07] VITALS: BP 105/66
== END 2020-12-05 09:15 | disposition home or self-care (01) ==
LOC: ENDO 05:57 → DAH 05:57 → ENDO 09:15
PROVIDERS: ATTEND Internal Medicine Gastroenterology
DX: D50.9 Iron deficiency anemia, unspecified (principal); K63.5 Polyp of colon; K29.70 Gastritis, unspecified, without bleeding; K31.7 Polyp of stomach and duodenum; I25.10 Atherosclerotic heart disease of native coronary artery without angina pectoris; I67.89 Other cerebrovascular disease; E11.9 Type 2 diabetes mellitus without complications; E66.9 Obesity, unspecified; I10 Essential (primary) hypertension; E78.5 Hyperlipidemia, unspecified; F41.9 Anxiety disorder, unspecified; F32.9 Major depressive disorder, single episode, unspecified; Z90.49 Acquired absence of other specified parts of digestive tract; Z98.890 Other specified postprocedural states; Z86.73 Personal history of transient ischemic attack (TIA), and cerebral infarction without residual deficits; Z79.4 Long term (current) use of insulin; Z79.82 Long term (current) use of aspirin; Z79.01 Long term (current) use of anticoagulants; Z79.899 Other long term (current) drug therapy; Z20.828 Contact with and (suspected) exposure to other viral communicable diseases
CPT/HCPCS: 43239; 45380; 45385; 82948 ×2; 93005; A4215; A4221; A4222; A4223; A4606; A4620; A4663; J2704 ×2; J3490; J7030; U0003

== ENCOUNTER → 2020-12-11 | Outpatient (CLI) | payer MEDICAID ==
[~2020-12-11] MED LIST changes: +CEFAZOLIN SODIUM 1 GM VIAL IVP ONE; +ESCI20TA38 PO; -ESCI20TA54 PO; -LISI40TA4 PO; +LISI40TA9 PO; +SODIUM CHLORIDE 0.9% 1000ML 1,000 ML IV SCH
[2020-12-11 11:17] LABS: BASOPHILS % (AUTO) 0.5 % (0.0-5.0); EOSINOPHILS % (AUTO) 1.2 % (0.0-8.0); HEMATOCRIT 42.7 % (36-48); LYMPHOCYTES % (AUTO) 27.3 % (21.0-51.0); MEAN CORPUSCULAR HEMOGLOBIN 26.3 pg (27.0-33.0); MEAN CORPUSCULAR HGB CONC 30.9 g/dL (32.0-36.0); MEAN CORPUSCULAR VOLUME 85.2 fL (79-99); MONOCYTES % (AUTO) 3.9 % (3.0-13.0); NEUTROPHILS % (AUTO) 66.9 % (40.0-77.0); PLATELET COUNT (AUTO) 340 K/uL (130-400); RED BLOOD CELL COUNT(AUTO) 5.01 MIL/uL (4.00-5.50); RED CELL DISTRIBUTION WIDTH 18.1 % (11.0-15.5); WHITE BLOOD COUNT (AUTO) 8.1 K/uL (4.8-10.8)
[2020-12-11 11:34] LABS: ALBUMIN 3.4 g/dL (3.5-5.0); BILIRUBIN,TOTAL 0.2 mg/dL (0.2-1.0); CREATININE 0.8 mg/dL (0.5-1.5); POTASSIUM 4.2 mmol/L (3.5-5.1); TOTAL PROTEIN, SERUM 8.2 g/dL (6.0-8.3)
[2020-12-11 11:39] LABS: PROTHROMBIN TIME 10.9 SEC (9.6-11.6)
== END | disposition home or self-care (01) ==
LOC: DAH 10:00 → EDSTATUS 12-12 10:00
PROVIDERS: ATTEND Surgery
DX: Z01.818 Encounter for other preprocedural examination (principal); Z20.822 Contact with and (suspected) exposure to COVID-19; I48.91 Unspecified atrial fibrillation; I10 Essential (primary) hypertension; E11.9 Type 2 diabetes mellitus without complications; E66.01 Morbid (severe) obesity due to excess calories; I49.3 Ventricular premature depolarization; Z79.01 Long term (current) use of anticoagulants
CPT/HCPCS: 36415; 71045; 80053; 80061; 85025; 85610; 86850; 86900; 86901; 93005; A6260; U0003

== ENCOUNTER → 2021-01-24 | Outpatient (CLI) | payer MEDICAID ==
[~2021-01-24] MED LIST changes: -CEFAZOLIN SODIUM 1 GM VIAL IVP ONE; -SODIUM CHLORIDE 0.9% 1000ML 1,000 ML IV SCH
== END | disposition home or self-care (01) ==
LOC: RAH 07:28
PROVIDERS: ATTEND Internal Medicine
DX: Z12.31 Encounter for screening mammogram for malignant neoplasm of breast (principal)
CPT/HCPCS: 77067

== ENCOUNTER → 2021-02-21 | Outpatient (CLI) | payer OTHER | END | disposition home or self-care (01) | LOC: OIH 09:22 | PROVIDERS: ATTEND Family Medicine | DX: J44.9 Chronic obstructive pulmonary disease, unspecified (principal); M25.561 Pain in right knee; M25.761 Osteophyte, right knee | CPT/HCPCS: 71046; 73560 ==

== ENCOUNTER → 2021-03-12 | Outpatient (CLI) | payer MEDICAID ==
[~2021-03-12] MED LIST changes: -DRON400T2 PO; +DRON400T7 PO
== END | disposition home or self-care (01) ==
LOC: OIH 09:46
PROVIDERS: ATTEND Internal Medicine
DX: R07.89 Other chest pain (principal); Z90.49 Acquired absence of other specified parts of digestive tract
CPT/HCPCS: 71046; 74021

== ENCOUNTER 2021-09-03 10:34 | Emergency (ER) | payer MEDICAID ==
[~2021-09-03] VITALS: Ht 165.1 cm; Wt 114.3 kg
[2021-09-03 10:59] LABS: BASOPHILS % (AUTO) 0.3 % (0.0-5.0); EOSINOPHILS % (AUTO) 1.5 % (0.0-8.0); HEMATOCRIT 40.6 % (36-48); LYMPHOCYTES % (AUTO) 32.7 % (21.0-51.0); MEAN CORPUSCULAR HGB CONC 32.8 g/dL (32.0-36.0); MEAN CORPUSCULAR VOLUME 91.6 fL (79-99); MONOCYTES % (AUTO) 5.7 % (3.0-13.0); NEUTROPHILS % (AUTO) 59.5 % (40.0-77.0); PLATELET COUNT (AUTO) 265 K/uL (130-400); RED BLOOD CELL COUNT(AUTO) 4.43 MIL/uL (4.00-5.50); WHITE BLOOD COUNT (AUTO) 6.8 K/uL (4.8-10.8)
[2021-09-03 11:08] LABS: INR 1.01 (0.85-1.15)
[2021-09-03 11:09] LABS: CREATININE 0.8 mg/dL (0.5-1.5); POTASSIUM 3.9 mmol/L (3.5-5.1)
[2021-09-03 11:10] LABS: APPEARANCE,URINE Cloudy (CLEAR); BILIRUBIN,URINE Negative (NEGATIVE); COLOR,URINE Dark Yellow (YELLOW); GLUCOSE, URINE (UA) Negative (NEGATIVE); KETONES,URINE Trace mg/dL (NEGATIVE); LEUKOCYTE ESTERASE ,URINE Trace (NEGATIVE); NITRATE,URINE Negative (NEGATIVE); OCCULT BLOOD,URINE Negative (NEGATIVE); PH,URINE 5.5 (5.0-8.0); PROTEIN,URINE Trace mg/dL (NEGATIVE)
[2021-09-03 11:10] LABS: PARTIAL THROMBOPLASTIN TIME 26.8 SEC (26.3-35.5)
[2021-09-03 11:13] LABS: ALBUMIN 3.3 g/dL (3.5-5.0); BILIRUBIN,TOTAL 0.3 mg/dL (0.2-1.0); TOTAL PROTEIN, SERUM 7.3 g/dL (6.0-8.3)
[2021-09-03 11:19] LABS: BACTERIA,URINE Many /HPF (None Seen); RBC,URINE 0-1 /HPF (0-1); SQUAMOUS EPITHELIAL CELL,UR Moderate /HPF (0-2); WBC,URINE 0-1 /HPF (0-1)
[2021-09-03 11:25] LABS: B-TYPE NATRIURETIC PEPTIDE 177 pg/mL (0-100)
[2021-09-03 14:26] VITALS: BP 143/59
== END 2021-09-03 14:30 | disposition home or self-care (01) ==
LOC: EDH 10:34
DX: R07.89 Other chest pain (principal); R11.0 Nausea; I10 Essential (primary) hypertension; F41.9 Anxiety disorder, unspecified; F32.A Depression, unspecified; I48.91 Unspecified atrial fibrillation; Z88.0 Allergy status to penicillin; Z79.899 Other long term (current) drug therapy; Z79.84 Long term (current) use of oral hypoglycemic drugs; Z79.01 Long term (current) use of anticoagulants; Z86.73 Personal history of transient ischemic attack (TIA), and cerebral infarction without residual deficits; Z98.84 Bariatric surgery status
CPT/HCPCS: 36415; 71045; 80053; 81001; 82550; 83880; 84484; 85025; 85610; 85730; 87088; 93005

== ENCOUNTER 2021-12-11 05:51 | Day surgery (SDC) | payer MEDICAID ==
[2021-12-07 08:36] LABS: BASOPHILS % (AUTO) 0.5 % (0.0-5.0); EOSINOPHILS % (AUTO) 1.1 % (0.0-8.0); HEMATOCRIT 41.6 % (36-48); LYMPHOCYTES % (AUTO) 41.3 % (21.0-51.0); MEAN CORPUSCULAR HEMOGLOBIN 28.8 pg (27.0-33.0); MEAN CORPUSCULAR HGB CONC 32.2 g/dL (32.0-36.0); MEAN CORPUSCULAR VOLUME 89.5 fL (79-99); MONOCYTES % (AUTO) 6.2 % (3.0-13.0); NEUTROPHILS % (AUTO) 50.7 % (40.0-77.0); PLATELET COUNT (AUTO) 265 K/uL (130-400); RED BLOOD CELL COUNT(AUTO) 4.65 MIL/uL (4.00-5.50); RED CELL DISTRIBUTION WIDTH 13.3 % (11.0-15.5); WHITE BLOOD COUNT (AUTO) 6.6 K/uL (4.8-10.8)
[2021-12-07 08:47] LABS: CREATININE 0.7 mg/dL (0.5-1.5); POTASSIUM 4.5 mmol/L (3.5-5.1)
[2021-12-07 08:51] LABS: INR 1.14 (0.85-1.15); PROTHROMBIN TIME 12.3 SEC (9.6-11.6)
[2021-12-07 08:52] LABS: PARTIAL THROMBOPLASTIN TIME 31.8 SEC (26.3-35.5)
[2021-12-10 12:42] VITALS: BP 110/86
[~2021-12-11] VITALS: Ht 165.1 cm; Wt 110.7 kg
[2021-12-11] VITALS (14 sets, daily range): BP systolic 89–134; BP diastolic 49–90
[~2021-12-11 05:51] MED LIST changes: -ATOR20TA65 PO; +CALC-322 PO; -CLOP75TA32 PO; +CYAN250014 PO; -EMPA25TA PO; +ESCI20TA PO; -ESCI20TA38 PO; +FERR-82 PO; +FOLI0.4T6 PO; -GLIM4TAB36 PO; +LISI20TA24 PO; -LISI40TA9 PO; -METF-444 PO; -METO-408 PO; +METO50TA18 PO; +MULT-1203 PO; +NITR0.4T50 SL; +ROSU20TA31 PO; +THIA100T91 PO; +TRAM50TA4 PO
[2021-12-11] MEDS ORDERED: 0.9%NACL 1000ML 1,000 ML IV SCH (08:00)
[2021-12-11] MEDS ORDERED: SUCCINYLCHOLINE 200MG/10ML SYR ONE (10:16)
[2021-12-11] MEDS ORDERED: PROPOFOL 10 MG/ML 20ML VIAL IV ONE (10:16)
[2022-01-03] MEDS ORDERED: AMIO200T68 PO (17:50)
[2022-01-13] MEDS ORDERED: HYDR25CA PO (21:35)
== END 2021-12-11 12:35 | disposition home or self-care (01) ==
LOC: DAH 05:51
PROVIDERS: ATTEND Internal Medicine Cardiovascular Disease
DX: I48.19 Other persistent atrial fibrillation (principal); Z20.822 Contact with and (suspected) exposure to COVID-19; R00.1 Bradycardia, unspecified; I11.9 Hypertensive heart disease without heart failure; E66.01 Morbid (severe) obesity due to excess calories; E11.9 Type 2 diabetes mellitus without complications; D68.59 Other primary thrombophilia; E78.00 Pure hypercholesterolemia, unspecified; G47.33 Obstructive sleep apnea (adult) (pediatric); I25.10 Atherosclerotic heart disease of native coronary artery without angina pectoris; Z86.73 Personal history of transient ischemic attack (TIA), and cerebral infarction without residual deficits; Z98.890 Other specified postprocedural states; Z79.01 Long term (current) use of anticoagulants; Z98.84 Bariatric surgery status; Z68.41 Body mass index [BMI] 40.0-44.9, adult; Z90.710 Acquired absence of both cervix and uterus; Z98.891 History of uterine scar from previous surgery; Z82.49 Family history of ischemic heart disease and other diseases of the circulatory system; Z82.61 Family history of arthritis; Z82.1 Family history of blindness and visual loss; Z79.899 Other long term (current) drug therapy; Z90.722 Acquired absence of ovaries, bilateral; Z88.0 Allergy status to penicillin
CPT/HCPCS: 36415; 80048; 85025; 85610; 85730; 87635; 92960; 93005; A4215; A4216; A4221; A4222; A4223 ×3; A4606; A4663; A7002; C9803; J0330; J3490; J7030; J2704

== ENCOUNTER 2022-02-20 08:30 | Day surgery (SDC) | payer MEDICAID ==
[2022-02-18 09:22] LABS: BASOPHILS % (AUTO) 0.5 % (0.0-5.0); EOSINOPHILS % (AUTO) 1.5 % (0.0-8.0); HEMATOCRIT 44.4 % (36-48); LYMPHOCYTES % (AUTO) 40.9 % (21.0-51.0); MEAN CORPUSCULAR HEMOGLOBIN 29.2 pg (27.0-33.0); MEAN CORPUSCULAR HGB CONC 32.2 g/dL (32.0-36.0); MEAN CORPUSCULAR VOLUME 90.6 fL (79-99); MONOCYTES % (AUTO) 4.4 % (3.0-13.0); NEUTROPHILS % (AUTO) 52.7 % (40.0-77.0); PLATELET COUNT (AUTO) 241 K/uL (130-400); RED CELL DISTRIBUTION WIDTH 13.5 % (11.0-15.5); WHITE BLOOD COUNT (AUTO) 6.1 K/uL (4.8-10.8)
[2022-02-18 09:30] LABS: CREATININE 0.8 mg/dL (0.5-1.5)
[2022-02-18 09:35] LABS: INR 1.06 (0.85-1.15); PROTHROMBIN TIME 11.5 SEC (9.6-11.6)
[2022-02-18 09:36] LABS: PARTIAL THROMBOPLASTIN TIME 29.6 SEC (26.3-35.5)
[2022-02-20] VITALS (12 sets, daily range): BP systolic 105–158; BP diastolic 57–97
[~2022-02-20] VITALS: Ht 165.1 cm; Wt 112.5 kg
[~2022-02-20 08:30] MED LIST changes: +0.9%NACL 1000ML 1,000 ML IV SCH; +AMIO200T68 PO; -CALC-322 PO; -CYAN250014 PO; -DRON400T7 PO; -FOLI0.4T6 PO; -LISI20TA24 PO; +METO-391 PO; -METO50TA18 PO; -NITR0.4T50 SL; -THIA100T91 PO; -TRAM50TA4 PO
[2022-02-20] MEDS ORDERED: PROPOFOL 1000 MG/100 ML 100 ML IV ONE (10:32)
[2022-02-20] MEDS ORDERED: ATROPINE 1MG SYG IVP ONE (10:33)
== END 2022-02-20 12:25 | disposition home or self-care (01) ==
LOC: DAH 08:30
PROVIDERS: ATTEND Internal Medicine Cardiovascular Disease
DX: I48.19 Other persistent atrial fibrillation (principal); R00.1 Bradycardia, unspecified; I50.22 Chronic systolic (congestive) heart failure; I25.10 Atherosclerotic heart disease of native coronary artery without angina pectoris; E11.9 Type 2 diabetes mellitus without complications; G47.33 Obstructive sleep apnea (adult) (pediatric); E66.01 Morbid (severe) obesity due to excess calories; E78.00 Pure hypercholesterolemia, unspecified; Z88.0 Allergy status to penicillin; Z90.710 Acquired absence of both cervix and uterus; Z98.890 Other specified postprocedural states; Z95.5 Presence of coronary angioplasty implant and graft; Z86.73 Personal history of transient ischemic attack (TIA), and cerebral infarction without residual deficits; Z98.891 History of uterine scar from previous surgery; Z90.49 Acquired absence of other specified parts of digestive tract; Z98.84 Bariatric surgery status; Z68.41 Body mass index [BMI] 40.0-44.9, adult
CPT/HCPCS: 36415; 80048; 82948; 85025; 85610; 85730; 87635; 92960; 93005; A4215; A4216; A4221; A4222; A4223 ×2; A4606; A4663; A7002; C9803; J0461; J3490; 99152; 99153; J2704

== ENCOUNTER 2022-02-25 10:24 | Emergency (ER) | payer MEDICAID ==
[~2022-02-25] VITALS: Ht 165.1 cm; Wt 108.9 kg
[~2022-02-25 10:24] MED LIST changes: -0.9%NACL 1000ML 1,000 ML IV SCH; -METO-391 PO
[2022-02-25 10:45] LABS: BASOPHILS % (AUTO) 0.6 % (0.0-5.0); EOSINOPHILS % (AUTO) 1.4 % (0.0-8.0); HEMATOCRIT 45.2 % (36-48); LYMPHOCYTES % (AUTO) 37.2 % (21.0-51.0); MEAN CORPUSCULAR HEMOGLOBIN 29.8 pg (27.0-33.0); MEAN CORPUSCULAR HGB CONC 33.8 g/dL (32.0-36.0); MEAN CORPUSCULAR VOLUME 87.9 fL (79-99); MONOCYTES % (AUTO) 4.9 % (3.0-13.0); NEUTROPHILS % (AUTO) 55.6 % (40.0-77.0); PLATELET COUNT (AUTO) 247 K/uL (130-400); RED BLOOD CELL COUNT(AUTO) 5.14 MIL/uL (4.00-5.50); RED CELL DISTRIBUTION WIDTH 13.3 % (11.0-15.5); WHITE BLOOD COUNT (AUTO) 7.2 K/uL (4.8-10.8)
[2022-02-25 11:00] LABS: CREATININE 0.8 mg/dL (0.5-1.5); POTASSIUM 3.7 mmol/L (3.5-5.1)
[2022-02-25 11:04] LABS: ALBUMIN 3.5 g/dL (3.5-5.0); BILIRUBIN,TOTAL 0.5 mg/dL (0.2-1.0)
[2022-02-25] MEDS ORDERED: ACETAMINOPHEN 325 MG TAB PO ONE (13:00)
[2022-02-25] MEDS ORDERED: ACETAMINOPHEN 325 MG TAB ONE (13:04)
[2022-02-25 14:56] VITALS: BP 128/104
== END 2022-02-25 14:58 | disposition home or self-care (01) ==
LOC: EDH 10:24
DX: I48.19 Other persistent atrial fibrillation (principal); I10 Essential (primary) hypertension; E11.9 Type 2 diabetes mellitus without complications; Z88.0 Allergy status to penicillin; Z95.5 Presence of coronary angioplasty implant and graft; Z98.84 Bariatric surgery status; Z79.01 Long term (current) use of anticoagulants; Z79.899 Other long term (current) drug therapy
CPT/HCPCS: 36415; 71045; 80053; 84484; 85025; 93005

== ENCOUNTER 2022-06-07 06:31 | Observation (INO) | payer MEDICAID ==
[2022-06-06 15:59] LABS: BASOPHILS % (AUTO) 0.4 % (0.0-5.0); EOSINOPHILS % (AUTO) 1.6 % (0.0-8.0); HEMATOCRIT 42.5 % (36-48); LYMPHOCYTES % (AUTO) 36.8 % (21.0-51.0); MEAN CORPUSCULAR HEMOGLOBIN 29.9 pg (27.0-33.0); MEAN CORPUSCULAR HGB CONC 32.5 g/dL (32.0-36.0); MONOCYTES % (AUTO) 5.4 % (3.0-13.0); NEUTROPHILS % (AUTO) 55.7 % (40.0-77.0); PLATELET COUNT (AUTO) 256 K/uL (130-400); RED BLOOD CELL COUNT(AUTO) 4.62 MIL/uL (4.00-5.50); RED CELL DISTRIBUTION WIDTH 13.2 % (11.0-15.5); WHITE BLOOD COUNT (AUTO) 6.8 K/uL (4.8-10.8)
[2022-06-06 16:11] LABS: CREATININE 0.8 mg/dL (0.5-1.5)
[2022-06-06 16:14] LABS: INR 0.98 (0.85-1.15); PROTHROMBIN TIME 10.7 SEC (9.6-11.6)
[2022-06-06 16:15] LABS: PARTIAL THROMBOPLASTIN TIME 25.2 SEC (26.3-35.5)
[2022-06-06 16:27] VITALS: BP 121/83
[~2022-06-07] VITALS: Ht 165.1 cm; Wt 110.2 kg
[~2022-06-07 06:31] MED LIST changes: -AMIO200T68 PO; +AMLO-257 PO; -FERR-82 PO; +LISI2.5T13 PO; +METO50TA18 PO; -MULT-1203 PO; +TRAM50TA4 PO; +VANCOMYCIN 1G/250ML KIT 250 ML IV ONE
[2022-06-07 08:16] VITALS: BP 135/91
[2022-06-07] MEDS ORDERED: LIDOCAINE HCL 1% 10 ML VIAL ONE (08:37)
[2022-06-07] MEDS ORDERED: BUPIVACAINE/PF 0.25% 30ML VIAL IJ ONE (08:37)
[2022-06-07] MEDS ORDERED: MEPERIDINE-PF 25 MG/ML SYG ONE ×5 (08:38→11:13)
[2022-06-07] MEDS ORDERED: MIDAZOLAM HCL 1 MG/ML 2ML VIAL ONE ×5 (08:38→11:13)
[2022-06-07] MEDS: 0.9%NACL 1000ML 1,000 ML IV SCH ×2 (08:58→13:05)
[2022-06-07] MEDS ORDERED: IOHEXOL-350 50ML VIAL IV ONE ×2 (09:12→10:47)
[2022-06-07] MEDS ORDERED: TRAMADOL HCL 50 MG TABLET PO PRN (12:00)
[2022-06-07] MEDS: ACETAMINOPHEN WITH CODEINE 1 TAB TAB PO PRN ×3 (12:51→22:30)
[2022-06-07 14:00] VITALS: BP 105/76
[2022-06-07] MEDS ORDERED: Rosuvastatin Calcium 20 MG PO SCH (21:00)
[2022-06-07] MEDS: METOPROLOL TARTRATE 50 MG TAB PO SCH (21:55)
[2022-06-07] MEDS: LISINOPRIL 2.5 MG TABLET PO SCH (21:55)
[2022-06-08 03:49] VITALS: BP 148/75
[2022-06-08 06:39] VITALS: BP 103/62
[2022-06-08] MEDS ORDERED: ONDANSETRON 4MG INJ IVP PRN (07:30)
[2022-06-08 08:00] VITALS: BP 128/78
[2022-06-08] MEDS ORDERED: AMLODIPINE 5 MG TAB PO SCH (09:00)
[2022-06-08] MEDS ORDERED: LORATADINE 10 MG TABLET PO SCH (09:00)
[2022-06-08] MEDS ORDERED: PANTOPRAZOLE 40 MG TAB DR PO SCH (09:00)
[2022-06-08] MEDS: METOPROLOL TARTRATE 50 MG TAB PO SCH (09:24)
[2022-06-08] MEDS: LISINOPRIL 2.5 MG TABLET PO SCH (09:25)
== END 2022-06-08 11:25 | disposition home or self-care (01) ==
LOC: DAH 06:31 → DAHIP 06:32 → 2AH 20:50
PROVIDERS: ADMIT Internal Medicine Cardiovascular Disease; ATTEND Internal Medicine Cardiovascular Disease
DX: I11.0 Hypertensive heart disease with heart failure (principal); I50.22 Chronic systolic (congestive) heart failure; I48.21 Permanent atrial fibrillation; D68.69 Other thrombophilia; E78.5 Hyperlipidemia, unspecified; E11.9 Type 2 diabetes mellitus without complications; I25.5 Ischemic cardiomyopathy; Z86.73 Personal history of transient ischemic attack (TIA), and cerebral infarction without residual deficits; Z79.01 Long term (current) use of anticoagulants; Z95.810 Presence of automatic (implantable) cardiac defibrillator; Z98.61 Coronary angioplasty status; Z79.899 Other long term (current) drug therapy
CPT/HCPCS: 80048; 85025; 85610; 85730; 36415; 93005; 33225; 33249; 96374; 71045; C1769 ×3; C1882; C1900; C1895; G0378 ×23; S0020; J2250 ×5; J3370; J3490; J2175 ×5; Q9967 ×2; A4215; A4223 ×3; A4222; A4221; A4663; A4216; A4606; J2405; 99156; 99157

== ENCOUNTER → 2022-07-18 | Outpatient (CLI) | payer MEDICAID ==
[~2022-07-18] MED LIST changes: -VANCOMYCIN 1G/250ML KIT 250 ML IV ONE
[2022-07-18 12:33] LABS: CREATININE 0.8 mg/dL (0.5-1.5); DIGOXIN 1.4 ng/mL (0.50-2.00); POTASSIUM 4.8 mmol/L (3.5-5.1)
== END | disposition home or self-care (01) ==
LOC: LAB 11:19
PROVIDERS: ATTEND Physician Assistant
DX: I25.10 Atherosclerotic heart disease of native coronary artery without angina pectoris (principal)
CPT/HCPCS: 36415; 80048; 80162

== ENCOUNTER 2022-10-14 07:40 | Day surgery (SDC) | payer MEDICAID ==
[2022-10-10 08:48] LABS: BASOPHILS % (AUTO) 0.4 % (0.0-5.0); EOSINOPHILS % (AUTO) 1.7 % (0.0-8.0); HEMATOCRIT 43.7 % (36-48); MEAN CORPUSCULAR HEMOGLOBIN 29.8 pg (27.0-33.0); MONOCYTES % (AUTO) 4.1 % (3.0-13.0); NEUTROPHILS % (AUTO) 63.7 % (40.0-77.0); PLATELET COUNT (AUTO) 216 K/uL (130-400); RED CELL DISTRIBUTION WIDTH 12.7 % (11.0-15.5)
[2022-10-10 09:00] LABS: CREATININE 0.7 mg/dL (0.5-1.5); POTASSIUM 3.8 mmol/L (3.5-5.1)
[2022-10-10 09:02] LABS: INR 0.98 (0.85-1.15); PROTHROMBIN TIME 10.7 SEC (9.6-11.6)
[2022-10-10 09:04] LABS: PARTIAL THROMBOPLASTIN TIME 28.7 SEC (26.3-35.5)
[2022-10-11 09:56] VITALS: BP 159/100
[2022-10-14] VITALS (8 sets, daily range): BP systolic 122–148; BP diastolic 74–88
[~2022-10-14] VITALS: Ht 165.1 cm; Wt 108.1 kg
[~2022-10-14 07:40] MED LIST changes: -AMLO-257 PO; +DIGO250T13 PO; +METO-391 PO; +METO-409 PO; -METO50TA18 PO; +NITR0.4T50 SL
[2022-10-14] MEDS ORDERED: 0.9%NACL 1000ML 1,000 ML IV ONE (07:56)
[2022-10-14] MEDS ORDERED: HEPARIN 10,000 UNIT/10ML (1,000 UNIT/ML) VIAL ONE (08:46)
[2022-10-14] MEDS ORDERED: LIDOCAINE HCL 400MG/20ML VIAL ONE (08:47)
[2022-10-14] MEDS ORDERED: MIDAZOLAM HCL 1 MG/ML 2ML VIAL ONE ×3 (08:47→11:13)
[2022-10-14] MEDS ORDERED: FENTANYL CITRATE PF 50 MCG/1 ML 2ML VIAL ONE (08:47)
[2022-10-14] MEDS ORDERED: MEPERIDINE-PF 25 MG/ML SYG ONE ×3 (09:07→11:13)
== END 2022-10-14 13:30 | disposition home or self-care (01) ==
LOC: DAH 07:40
PROVIDERS: ATTEND Internal Medicine Cardiovascular Disease
DX: I48.21 Permanent atrial fibrillation (principal); I25.10 Atherosclerotic heart disease of native coronary artery without angina pectoris; I11.0 Hypertensive heart disease with heart failure; I50.22 Chronic systolic (congestive) heart failure; E11.9 Type 2 diabetes mellitus without complications; G47.33 Obstructive sleep apnea (adult) (pediatric); I42.0 Dilated cardiomyopathy; E78.00 Pure hypercholesterolemia, unspecified; Z88.0 Allergy status to penicillin; Z95.5 Presence of coronary angioplasty implant and graft; Z86.73 Personal history of transient ischemic attack (TIA), and cerebral infarction without residual deficits; Z86.010 Personal history of colon polyps; Z98.891 History of uterine scar from previous surgery; Z90.49 Acquired absence of other specified parts of digestive tract; Z98.84 Bariatric surgery status; Z98.890 Other specified postprocedural states; Z82.49 Family history of ischemic heart disease and other diseases of the circulatory system; Z82.61 Family history of arthritis
CPT/HCPCS: 80048; 85025; 85610; 85730; 93005; 93650; 93619; 36415; C1894; C1732; A4649 ×2; J3490; J7030; J1644 ×2; J2250 ×3; J2175 ×3; A4215; A4222; A4221; A4663; A4216; A4606; A4223 ×3; 99156; 99157; J3010

== ENCOUNTER → 2022-11-25 | Outpatient (CLI) | payer MEDICAID ==
[~2022-11-25] MED LIST changes: -METO-391 PO
== END | disposition home or self-care (01) ==
LOC: RAH 15:42
PROVIDERS: ATTEND Internal Medicine
DX: M47.22 Other spondylosis with radiculopathy, cervical region (principal)
CPT/HCPCS: 72040

== ENCOUNTER → 2023-03-28 | Outpatient (CLI) | payer MEDICAID ==
[2023-03-28 09:12] LABS: BASOPHILS % (AUTO) 0.7 % (0.0-5.0); HEMATOCRIT 45.4 % (36-48); LYMPHOCYTES % (AUTO) 30.1 % (21.0-51.0); MEAN CORPUSCULAR HEMOGLOBIN 29.3 pg (27.0-33.0); MEAN CORPUSCULAR HGB CONC 31.7 g/dL (32.0-36.0); MEAN CORPUSCULAR VOLUME 92.3 fL (79-99); MONOCYTES % (AUTO) 5.1 % (3.0-13.0); PLATELET COUNT (AUTO) 227 K/uL (130-400); RED BLOOD CELL COUNT(AUTO) 4.92 MIL/uL (4.00-5.50); WHITE BLOOD COUNT (AUTO) 7.2 K/uL (4.8-10.8)
[2023-03-28 09:23] LABS: APPEARANCE,URINE CLEAR (CLEAR); BILIRUBIN,URINE NEGATIVE (NEGATIVE); COLOR,URINE YELLOW (YELLOW); GLUCOSE, URINE (UA) NEGATIVE (NEGATIVE); KETONES,URINE NEGATIVE (NEGATIVE); LEUKOCYTE ESTERASE ,URINE NEGATIVE Leu/uL (NEGATIVE); NITRATE,URINE NEGATIVE (NEGATIVE); OCCULT BLOOD,URINE NEGATIVE (NEGATIVE); PH,URINE 5.5 (5.0-8.0); PROTEIN,URINE NEGATIVE (NEGATIVE); UROBILINOGEN,URINE 0.2 mg/dL (0.2-1.0)
[2023-03-28 09:24] LABS: INR 0.95 (0.85-1.15); PROTHROMBIN TIME 10.4 SEC (9.6-11.6)
[2023-03-28 09:34] LABS: ALBUMIN 3.4 g/dL (3.5-5.0); CREATININE 0.7 mg/dL (0.5-1.5); POTASSIUM 4.3 mmol/L (3.5-5.1); TOTAL PROTEIN, SERUM 7.4 g/dL (6.0-8.3)
== END | disposition home or self-care (01) ==
LOC: RAH 08:20
PROVIDERS: ATTEND Internal Medicine
DX: I10 Essential (primary) hypertension (principal)
CPT/HCPCS: 36415; 71046; 80053; 81003; 85025; 85610; 85730; 87088

== ENCOUNTER → 2023-04-30 | Outpatient (CLI) | payer MEDICAID ==
[~2023-04-30] MED LIST changes: -ROSU20TA31 PO; +ROSU20TA73 PO
[2023-04-30 08:37] LABS: BASOPHILS % (AUTO) 0.7 % (0.0-5.0); EOSINOPHILS % (AUTO) 1.3 % (0.0-8.0); MEAN CORPUSCULAR HEMOGLOBIN 29.6 pg (27.0-33.0); MEAN CORPUSCULAR HGB CONC 32.7 g/dL (32.0-36.0); MEAN CORPUSCULAR VOLUME 90.5 fL (79-99); MONOCYTES % (AUTO) 5.7 % (3.0-13.0); NEUTROPHILS % (AUTO) 52.1 % (40.0-77.0); PLATELET COUNT (AUTO) 239 K/uL (130-400); RED BLOOD CELL COUNT(AUTO) 4.53 MIL/uL (4.00-5.50); RED CELL DISTRIBUTION WIDTH 13.2 % (11.0-15.5); WHITE BLOOD COUNT (AUTO) 5.4 K/uL (4.8-10.8)
[2023-04-30 09:03] LABS: ALBUMIN 3.2 g/dL (3.5-5.0); CREATININE 0.7 mg/dL (0.5-1.5); POTASSIUM 3.9 mmol/L (3.5-5.1); TOTAL PROTEIN, SERUM 7.2 g/dL (6.0-8.3)
== END | disposition home or self-care (01) ==
LOC: RAH 07:55
PROVIDERS: ATTEND Internal Medicine
DX: M25.561 Pain in right knee (principal)
CPT/HCPCS: 36415; 73560; 80053; 80061; 85025

== ENCOUNTER → 2023-07-18 | Outpatient (CLI) | payer MEDICAID ==
[2023-07-18 12:14] LABS: BASOPHILS # (AUTO) 0.04 K/uL (0.00-0.20); BASOPHILS % (AUTO) 0.7 % (0.0-5.0); EOSINOPHILS # (AUTO) 0.09 K/uL (0.00-0.70); EOSINOPHILS % (AUTO) 1.6 % (0.0-8.0); HEMATOCRIT 43.1 % (36-48); IMMATURE GRANULOCYTE ABSOLUTE 0.01 K/uL (0-1); LYMPHOCYTES # (AUTO) 2.6 K/uL (1.0-4.8); LYMPHOCYTES % (AUTO) 46.2 % (21.0-51.0); MEAN CORPUSCULAR HEMOGLOBIN 29.5 pg (27.0-33.0); MEAN CORPUSCULAR HGB CONC 31.8 g/dL (32.0-36.0); MEAN CORPUSCULAR VOLUME 92.7 fL (79-99); MONOCYTES # (AUTO) 0.3 K/uL (0.1-1.0); MONOCYTES % (AUTO) 5.1 % (3.0-13.0); NEUTROPHILS # (AUTO) 2.6 K/uL (1.8-7.7); NEUTROPHILS % (AUTO) 46.2 % (40.0-77.0); PLATELET COUNT (AUTO) 225 K/uL (130-400); RED BLOOD CELL COUNT(AUTO) 4.65 MIL/uL (4.00-5.50); RED CELL DISTRIBUTION WIDTH 13.5 % (11.0-15.5); WHITE BLOOD COUNT (AUTO) 5.5 K/uL (4.8-10.8)
[2023-07-18 12:30] LABS: ALBUMIN 3.3 g/dL (3.5-5.0); BILIRUBIN,TOTAL 0.5 mg/dL (0.2-1.0); CREATININE 0.7 mg/dL (0.5-1.5); POTASSIUM 4.4 mmol/L (3.5-5.1)
== END | disposition home or self-care (01) ==
LOC: LAB 08:18
PROVIDERS: ATTEND Internal Medicine Cardiovascular Disease
DX: I50.22 Chronic systolic (congestive) heart failure (principal); I48.19 Other persistent atrial fibrillation; D68.59 Other primary thrombophilia
CPT/HCPCS: 36415; 80053; 80061; 85025

== ENCOUNTER 2023-12-21 07:47 | Emergency (ER) | payer MEDICAID, OTHER ==
[~2023-12-21] VITALS: Ht 165.1 cm; Wt 106.6 kg
[2023-12-21 08:40] LABS: RAPID GROUP A STREP negative (NEGATIVE)
[2023-12-21 08:43] LABS: SARS-CoV-2, RNA, NAAT NEGATIVE SARS CoV-2 (NEGATIVE)
[2023-12-21 08:47] LABS: INFLUENZA TYPE A Negative For Type A (NEGATIVE); INFLUENZA TYPE B Negative For Type B (NEGATIVE)
[2023-12-21 10:14] LABS: APPEARANCE,URINE CLEAR (CLEAR); BILIRUBIN,URINE NEGATIVE (NEGATIVE); COLOR,URINE LIGHT-YELLOW (YELLOW); GLUCOSE, URINE (UA) NEGATIVE (NEGATIVE); KETONES,URINE NEGATIVE (NEGATIVE); LEUKOCYTE ESTERASE ,URINE NEGATIVE Leu/uL (NEGATIVE); NITRATE,URINE NEGATIVE (NEGATIVE); OCCULT BLOOD,URINE NEGATIVE (NEGATIVE); PH,URINE 5.5 (5.0-8.0); PROTEIN,URINE NEGATIVE (NEGATIVE); UROBILINOGEN,URINE 0.2 mg/dL (0.2-1.0)
[2023-12-21 10:23] LABS: ADD UA MICROSCOPIC NO
[2023-12-21 10:48] VITALS: BP 139/93; PULSE 70; RESP 18; O2SAT 100
[2023-12-21] MEDS ORDERED: BENZ-39 PO (11:32)
[2023-12-21] MEDS ORDERED: CLAR-44 PO (11:32)
[2023-12-21] MEDS ORDERED: ALBUHFA IH (11:32)
== END 2023-12-21 12:28 | disposition home or self-care (01) ==
LOC: EDH 07:47
DX: J20.8 Acute bronchitis due to other specified organisms (principal); R50.9 Fever, unspecified; R09.3 Abnormal sputum; I10 Essential (primary) hypertension; E11.9 Type 2 diabetes mellitus without complications; E78.00 Pure hypercholesterolemia, unspecified; Z20.822 Contact with and (suspected) exposure to COVID-19; Z94.9 Transplanted organ and tissue status, unspecified; Z79.899 Other long term (current) drug therapy; Z98.890 Other specified postprocedural states; Z88.0 Allergy status to penicillin
CPT/HCPCS: 71045; 81003; 87635; 87804; 87880